=== PATIENT | female | born 1970 | race Caucasian/White ===

== ENCOUNTER 2016-06-20 16:28 | Emergency (ER) | payer OTHER ==
[~2016-06-20] VITALS: Ht 170.2 cm; Wt 52.3 kg
[2016-06-20 16:39] VITALS: BP 137/83; PULSE 88; RESP 14; O2SAT 100
--- NOTE | 2016-06-20 16:46 | ED.REPORT ---
HPI-Chest Pain 40 and Over Date of Service Jun 20, 2016 ED Provider: The patient is a 45 year old female who presents to the emergency department from urgent care complaining of intermittent central chest pain that started earlier today. She only notices the chest pain when she is outside. She has been sick with cold symptoms for the last 2 weeks. She reports cough, congestion , malaise, fatigue, nausea, and throat discomfort. She has not had similar symptoms in the past. She denies abdominal pain, hemoptysis, lower extremity swelling, fever or chills. She denies recent surgeries or long periods of immobilization. She does not have history of previous blood clots. She is not on control. Nursing Notes Stated Complaint: CHEST PAIN Chief Complaint: Chest Pain Nursing Notes Reviewed: Yes Allergies: Coded Allergies: No Known Allergies (Verified , 08/23/13) General Time Seen by MD: 16:46 Chief Complaint Chest pain Hx Obtained From: Patient Arrived By: Wheelchair Sudden in Onset?: Yes Onset Occurred: 9 - 12 hours ago Symptom Duration: Intermittent Location: : Substernal Quality: Painful Severity: Current: Mild Severity: Maximum: Mild Recent Healthcare: No recent hospitalization, Recent doctor visit Similar Sx Previous: No Risk Factors PERC Rule PERC Result: All PERC criteria "No", PERC rule satisfied Well's Criteria for PE Well's PE Score: 0-2 pts (low risk 3.6%) Review of Systems Constitutional: Reports: Fatigue, Malaise, Denies: Chills, Fever Respiratory: Reports: Non-productive cough, Denies: Hemoptysis Cardiovascular: Reports: Chest pain GI: Reports: Nausea, Denies: Abdominal pain, Vomiting Musculoskeletal: Denies: Extremity swelling Complete sys rev & neg: except as marked. Ears / Nose / Throat: Reports: Nose bleeding, Sore throat Physical Exam Initial Vital Signs Vital Signs (First) Date Time Temp Pulse Resp B/P Pulse Ox O2 Delivery O2 Flow Rate FiO2 06/20/16 16:39 36.7 88 14 137/83 100 Initial VS: Reviewed Head / Eyes: Atraumatic, Normocephalic, PERRL ENT: Mucous membranes moist, Conjunctiva normal, No scleral icterus Neck: Supple, Non-tender, Full range of motion Lymphatic: No lymphadenopathy Extremities: Vascular intact, Neuro intact, No swelling, No tenderness Skin: Warm, Dry, No cyanosis Neurologic: Alert, Oriented, Nonfocal Psychiatric: Mood/affect normal, Behavior normal, Normal thought content General/Constitutional: Awake, Alert, No acute distress, Well appearing Respiratory / Chest: Atraumatic, Breath sounds NL, Breath sounds = bilat, No respiratory distress, No rales, No rhonchi, No wheezing, No stridor, No chest tenderness Cardiovascular: Heart rate NL, Regular rhythm, Heart sounds NL, No gallop, No murmurs, No rubs, Peripheral circulation NL, Pulses = bilaterally, No gross BP differential Abdomen: Atraumatic, Soft, Non-tender, McBurney's non-tender, No guarding, No rebound, BS normoactive, No distention, No hernia, No palpable mass Interpretation & Diagnostics Lab Results Interpretation Result Diagram: 06/20/16 1715 06/20/16 1715 Test 06/20/16 17:15 White Blood Count 7.7th/mm3 (3.8-10.1) Red Blood Count 4.76mil/mm3 (3.90-5.20) Hemoglobin 14.4g/dL (12.0-15.6) Hematocrit 42.2% (35.0-46.0) Mean Corpuscular Volume 88.7fL (81-100) Mean Corpuscular Hemoglobin 30.3pg (27.0-35.0) Mean Corpuscular Hemoglobin Concent 34.1% (32.0-37.0) Red Cell Distribution Width 12.3% (12.3-15.4) Platelet Count 271bil/L (150-400) Neutrophils (%) (Auto) 76.9% (40-74) Lymphocytes (%) (Auto) 17.4% (14-46) Monocytes (%) (Auto) 4.7% (4-12) Eosinophils (%) (Auto) 0.3% (0-5) Basophils (%) (Auto) 0.7% (0-3) Sodium Level 137mEq/L (134-144) Potassium Level 4.1mEq/L (3.5-5.2) Chloride Level 100mEq/L (97-108) Carbon Dioxide Level 22mmol/L (18-29) Blood Urea Nitrogen 15mg/dL (6-24) Creatinine 0.68mg/dL (0.57-1.00) Estimat Glomerular Filtration Rate 133mL/min (>59) Glucose Level 103mg/dL (60-99) Calcium Level 9.2mg/dL (8.5-10.1) Magnesium Level 2.1mg/dL (1.6-2.6) Total Bilirubin 0.4mg/dL (0.0-1.2) Aspartate Amino Transf (AST/SGOT) 14U/L (0-50) Alanine Aminotransferase (ALT/SGPT) 10U/L (0-32) Alkaline Phosphatase 43U/L (25-150) Troponin T < 0.010ug/L (0.0-0.011) Total Protein 7.4g/dL (6.4-8.4) Albumin 4.6g/dL (3.4-5.0) Hold Parada Top Tube Received (Received) ECG Interpretation ECG Interpretation: Normal sinus rhythm with a rate of 86 Time: 16:52 Interpreted by: ED physician X-Ray Chest Interpretation Chest Xray Interpretation: IMPRESSION: No acute process. Dictated by: Jennifer Botello M.D. on 06/20/2016 at 17:02 Interpretation / Wet Read by: Interpret - Radiologist Re-Eval/Medical Decision Med Decision/Clinical Course Symptoms sound more respiratory in nature, and only associated with going outside in the cold. She is asymptomatic while in the ER her workup is unremarkable, sufficiently low risk no d-dimer was ordered. She will be discharged with return and follow-up precautions Source of Hx: Old records Re-Evaluation/Progress Note: Rechecked the patient. Discussed results, diagnosis, and plan for disposition. She understands and agrees with plan. All questions were addressed. Counseled Regarding: Diagnosis, Lab results, Need for follow-up, When/why to return to ED Discharge & Departure Primary Impression: Non-cardiac chest pain Disposition: Home Discharge Condition All VS Reviewed: Yes Condition: Stable Patient Instructions: Chest Pain (ED) Additional Instructions: Thank you for entrusting us with your care today. Your labs, EKG, and chest x- ray results today are reassuring. There is no evidence of a heart attack or pneumonia. Take naproxen as needed for your discomfort. Followup with your regular doctor in the next few days for re-evaluation. Return to the emergency department for increased chest pain, difficulty breathing, uncontrollable vomiting, fever, or any other new or concerning symptoms. Referrals: Girotto,Jeffrey R DO (PCP) Zackary Attestation Portions of this note were transcribed by Rohini Morales. I, Dr. Awan personally performed the history, physical exam and medical decision-making; I reviewed and confirmed the accuracy of the information in the transcribed note. Signed by: Zackary Garza, 06/20/2016 at 1800. copies to: Jeffrey Vergara Timothy S DO Jun 20, 2016 16:46 Rohini Morales Jun 20, 2016 16:57
--- NOTE | 2016-06-20 17:04 | DRSVH ---
PROCEDURE: X-RAY CHEST ONE VIEW, PORTABLE ([id number]) INDICATIONS: chest pain TECHNIQUE: One view of the chest was acquired. COMPARISON: [facility], CR, CHEST 2VW, 08/23/2013, 21:22. FINDINGS: Surgical changes and devices: None. Lungs and pleura: No pleural effusions or pneumothorax. Lungs are clear. Mediastinum: Mediastinal contours appear normal. Heart size is normal. Bones and chest wall: No suspicious bony lesions. Overlying soft tissues appear unremarkable. IMPRESSION: No acute process. Dictated by: Jennifer Botello M.D. on 06/20/2016 at 17:02 Approved by: Jennifer Botello M.D. on 06/20/2016 at 17:02
[2016-06-20 17:20] LABS: BASOPHILS % (AUTO) 0.7 % (0-3); EOSINOPHILS % (AUTO) 0.3 % (0-5); MONOCYTES % (AUTO) 4.7 % (4-12); Mean Corpuscular Hemoglobin 30.3 pg (27.0-35.0); Mean Corpuscular Volume 88.7 fL (81-100); NEUTROPHILS % (AUTO) 76.9 % (40-74); Platelet Count 271 bil/L (150-400)
[2016-06-20] MEDS ORDERED: Ketorolac 15 mg/mL Inj IVPUSH ONE (17:25)
[2016-06-20 17:44] LABS: TROPONIN T < 0.010 ug/L (0.0-0.011)
[2016-06-20 17:51] LABS: Magnesium 2.1 mg/dL (1.6-2.6)
[2016-06-20 18:07] VITALS: BP 136/74; PULSE 84; RESP 14; O2SAT 95
== END 2016-06-20 18:08 | disposition home or self-care (01) ==
LOC: SED 16:28
DX: R07.89 Other chest pain (principal); M79.1 Myalgia; R11.0 Nausea; R07.0 Pain in throat
CPT/HCPCS: 36415; 71010; 80053; 83735; 84484; 85025; 93005; 99285; J1885